=== PATIENT | female | born 2000 | race African-American/Black ===

== ENCOUNTER 2023-08-27 16:42 | Emergency (ER) | payer MEDICAID ==
[~2023-08-27] VITALS: Ht 172.7 cm; Wt 125.0 kg
[2023-08-27 18:08] LABS: Eosinophils # (auto) 0 10 ^3/uL (0-0.8); Hemoglobin 12.1 g/dL (12.2-16.2); Monocytes # (auto) 0.7 10 ^3/uL (0-1.3); Neutrophils # (auto) 7.4 10 ^3/uL (1.6-8.6)
[2023-08-27 18:10] LABS: Chloride 108 mmol/L (98-107); Potassium 3.7 mmol/L (3.5-5.1); Sodium 138 mmol/L (136-145)
[2023-08-27 18:11] LABS: Anion Gap 10 (5-15); Basophils # (auto) 0 10 ^3/uL (0-0.2); Basophils % (auto) 0.5 % (0.0-2.0); Carbon Dioxide 20 mmol/L (20-30); Eosinophils % (auto) 0.1 % (0.0-7.0); Hematocrit 37.3 % (36.0-46.0); Lymphocytes # (auto) 1.7 10 ^3/uL (0.4-5.4); Lymphocytes % (auto) 16.8 % (10.0-50.0); Mean Corpuscular Hemoglobin 24.7 pg (28.0-32.0); Mean Corpuscular Hgb Conc. 32.5 g/dL (32.0-36.0); Mean Corpuscular Volume 76.1 fL (80.0-100.0); Monocytes % (auto) 7.5 % (0.0-12.0); Neutrophils % (auto) 75.1 % (37.0-80.0); Red Cell Distribution Width 17.4 % (11.8-14.3); White Blood Cell 9.9 10^3/uL (4.4-10.8)
[2023-08-27 18:12] LABS: Calcium 9.6 mg/dL (8.7-10.4)
[2023-08-27 18:16] LABS: BUN/Creatinine Ratio 8.9 (10.0-20.0); Blood Urea Nitrogen 9 mg/dL (9-23); Glucose 103 mg/dL (74-106)
[2023-08-27 18:17] LABS: Lipase 34 U/L (12-53)
[2023-08-27] MEDS: DICYCLOMINE HCL (10MG/ML) 2 ML AMPULE IM ONE (19:02)
[2023-08-27] MEDS: ONDANSETRON HCL 4 MG/2 ML VIAL IM ONE (19:03)
[2023-08-27 20:58] LABS: Urine Bacteria FEW /hpf (None Seen); Urine Blood 2+ /uL (Negative); Urine Clarity Turbid (Clear); Urine Color Yellow (Yellow); Urine Mucus FEW (None Seen); Urine Protein, UAD 1+ (Negative); Urine Specific Gravity 1.023 (1.001-1.035); Urine Urobilinogen Normal (Negative); Urine WBC 6 /hpf (0 - 5); Urine pH 6.5 (5.0-9.0)
[2023-08-27] MEDS ORDERED: DICY10CA PO (21:17)
[2023-08-27] MEDS ORDERED: ZOFR4T PO (21:17)
[2023-08-27 21:38] VITALS: BP 147/87; PULSE 84; RESP 16; TEMP 98.7; O2SAT 98
[2023-08-29] MEDS ORDERED: DICY10CA PO (21:15)
== END 2023-08-27 21:41 | disposition home or self-care (01) ==
LOC: EDBD 16:42 → ER 16:42
DX: R10.32 Left lower quadrant pain (principal); R11.0 Nausea
CPT/HCPCS: 36415; 80048; 80320; 81001; 81025; 83690; 85025; 96372; 99284; J0500; J2405